=== PATIENT | female | born 1970 | race Caucasian/White ===

== ENCOUNTER 2018-10-20 12:45 | Emergency (ER) | payer MEDICAID ==
[~2018-10-20] VITALS: Ht 162.6 cm; Wt 76.4 kg
[~2018-10-20 12:45] MED LIST: AMPH10TA PO; BACL10TA2 PO; ENAL10TA78 PO; EST1T PO; HYDR-3965 PO; HYDR-3972 PO; IBUP-1984 PO; MECL-69 PO; NORCO10T PO; OSC500T PO; ZOLP10TA5 PO
[2018-10-20] MEDS ORDERED: ipratropium/albuterol 3ml nebule NEB ONE (14:10)
[2018-10-20] MEDS ORDERED: predniSONE 20 mg tablet PO ONE (14:10)
[2018-10-20] MEDS ORDERED: ALBU6.7H INH (14:21)
[2018-10-20] MEDS ORDERED: PRED20TA PO (14:21)
[2018-10-20] MEDS ORDERED: SULF1TAB49 PO (14:36)
[2018-10-20 14:48] VITALS: BP 133/100
== END 2018-10-20 14:50 | disposition home or self-care (01) ==
LOC: ER 12:47
DX: J20.9 Acute bronchitis, unspecified (principal); G89.29 Other chronic pain; F15.90 Other stimulant use, unspecified, uncomplicated; Z90.710 Acquired absence of both cervix and uterus; Z60.2 Problems related to living alone; Z56.0 Unemployment, unspecified; Z88.1 Allergy status to other antibiotic agents; Z88.5 Allergy status to narcotic agent; Z79.899 Other long term (current) drug therapy
CPT/HCPCS: 71045; 94640; 94760; 99283; J7512

== ENCOUNTER 2019-03-20 09:23 | Emergency (ER) | payer MEDICAID ==
[~2019-03-20] VITALS: Ht 162.6 cm; Wt 72.7 kg
[~2019-03-20 09:23] MED LIST changes: +ALBU6.7H9 INH
[2019-03-20 09:33] VITALS: BP 133/100
[2019-03-20] MEDS ORDERED: CYCL-1 PO (11:12)
[2019-03-20] MEDS ORDERED: HYDR-3565 PO (11:12)
== END 2019-03-20 11:46 | disposition home or self-care (01) ==
LOC: ER 09:24
DX: S80.11XA Contusion of right lower leg, initial encounter (principal); S40.812A Abrasion of left upper arm, initial encounter; S40.811A Abrasion of right upper arm, initial encounter; F15.90 Other stimulant use, unspecified, uncomplicated; G89.29 Other chronic pain; F32.9 Major depressive disorder, single episode, unspecified; Z88.1 Allergy status to other antibiotic agents; Z88.5 Allergy status to narcotic agent; Z79.899 Other long term (current) drug therapy; Z90.710 Acquired absence of both cervix and uterus; Z56.0 Unemployment, unspecified; W55.01XA Bitten by cat, initial encounter; Y93.89 Activity, other specified; Y92.89 Other specified places as the place of occurrence of the external cause; Y99.8 Other external cause status
CPT/HCPCS: 99283

== ENCOUNTER 2019-12-10 05:22 | Emergency (ER) | payer MEDICAID ==
[~2019-12-10] VITALS: Ht 162.6 cm; Wt 74.1 kg
[~2019-12-10 05:22] MED LIST changes: +CYCL-1 PO
[2019-12-10 06:12] LABS: BASOPHILS % (AUTO) 0.5 % (0-1); EOSINOPHILS % (AUTO) 0.5 % (0-6); HEMATOCRIT 41.3 % (35.0-45.0); HEMOGLOBIN 13.8 g/dl (12.0-16.0); LYMPHOCYTES # (AUTO) 1.4 X10'3 (1.1-4.8); MEAN CORPUSCULAR HEMOGLOBIN 31.6 PG (27.0-31.0); MEAN CORPUSCULAR HGB CONC 33.5 g/dL (33.0-36.5); MEAN CORPUSCULAR VOLUME 94.4 FL (78-98); MEAN PLATELET VOLUME 5.8 FL (7.4-10.4); MONOCYTES # (AUTO) 0.7 X10'3 (0-0.9); NEUTROPHILS # (AUTO) 6.8 X10'3 (1.8-7.7); PLATELET COUNT 301 X10'3 (140-440); RED BLOOD COUNT 4.38 X10'6 (4.20-5.60)
[2019-12-10 06:24] LABS: ALANINE AMINOTRANSFERASE 19 U/L (12-78); ALBUMIN 3.9 G/DL (3.4-5.0); ALBUMIN/GLOBULIN RATIO 1.3 (1.1-1.5); ALKALINE PHOSPHATASE 67 IU/L (46-116); ANION GAP 8 (8-16); ASPARTATE AMINO TRANSFERASE 11 U/L (10-37); BILIRUBIN,TOTAL 0.3 MG/DL (0.1-1.0); BLOOD UREA NITROGEN 12 MG/DL (7-18); CALCIUM 8.2 MG/DL (8.5-10.1); CHLORIDE 103 MMOL/L (99-107); GLUCOSE 125 MG/DL (70-104); POTASSIUM 3.3 MMOL/L (3.5-5.1); SODIUM 137 MMOL/L (135-145); TOTAL CARBON DIOXIDE 25.6 MMOL/L (24-32); TOTAL PROTEIN 6.9 G/DL (6.4-8.2); eGFR 76 ML/MIN
[2019-12-10] MEDS ORDERED: TETanus/Pertussis (Acell)/Diphther VAC/PF (Tdap-Adult) 0.5ml syringe IMVAC ONE (06:50)
--- NOTE | 2019-12-10 06:54 | NUR ---
PT BEING TAKEN TO CT
[2019-12-10] MEDS ORDERED: potassium Cl 20 mEq SR tablet PO STA (07:21)
[2019-12-10 07:40] VITALS: BP 131/62
== END 2019-12-10 07:53 | disposition home or self-care (01) ==
LOC: ER 05:23
DX: S01.01XA Laceration without foreign body of scalp, initial encounter (principal); R55 Syncope and collapse; W18.39XA Other fall on same level, initial encounter; Y93.89 Activity, other specified; Y92.89 Other specified places as the place of occurrence of the external cause; Y99.8 Other external cause status
CPT/HCPCS: 12001; 36415; 70450; 80053; 84484; 85025; 90471; 90715; 93005; 99285

== ENCOUNTER 2020-05-18 07:53 | Emergency (ER) | payer MEDICAID ==
[~2020-05-18] VITALS: Ht 162.6 cm; Wt 73.6 kg
[2020-05-18] MEDS ORDERED: HYDROcodone/acetaminophen 5mg/325mg tablet PO ONE (08:05)
--- NOTE | 2020-05-18 08:16 | NUR ---
BIB EMS. Pain 09/12. MD Edwards updated. [place] ordered and administered. No s/s distress. Taken to CT via wheelchair. Not on blood thinners.
[2020-05-18] MEDS ORDERED: LIDOcaine 1% W/epiNEPHrine 1:200,000 10ml vial IJ ONE (08:40)
[2020-05-18] MEDS ORDERED: LIDOcaine 1% w/epiNEPHrine 1:200,000 30ml vial IJ ONE (08:50)
[2020-05-18] MEDS ORDERED: HYDR-3965 PO (09:10)
[2020-05-18 09:31] VITALS: BP 147/93
== END 2020-05-18 09:28 | disposition home or self-care (01) ==
LOC: ER 07:54
DX: S01.01XA Laceration without foreign body of scalp, initial encounter (principal); G89.29 Other chronic pain; M54.9 Dorsalgia, unspecified; F32.9 Major depressive disorder, single episode, unspecified; F15.10 Other stimulant abuse, uncomplicated; Z56.0 Unemployment, unspecified; Z88.6 Allergy status to analgesic agent; Z88.1 Allergy status to other antibiotic agents; Z79.899 Other long term (current) drug therapy; W18.39XA Other fall on same level, initial encounter; Y93.89 Activity, other specified; Y92.89 Other specified places as the place of occurrence of the external cause; Y99.8 Other external cause status
CPT/HCPCS: 12001; 70450; 99284

== ENCOUNTER 2021-02-28 16:04 | Emergency (ER) | payer MEDICAID ==
[~2021-02-28] VITALS: Ht 162.6 cm; Wt 68.2 kg
[2021-02-28] MEDS ORDERED: traMADol 50MG tablet PO ONE (18:20)
[2021-02-28] MEDS ORDERED: ketorolac tromethamine 15mg/ml inj. IM ONE (18:20)
[2021-02-28] MEDS ORDERED: TRAM50TA2 PO (18:24)
[2021-02-28] MEDS ORDERED: IBUP-1984 PO (18:24)
[2021-02-28 20:09] VITALS: BP 151/96
== END 2021-02-28 20:11 | disposition home or self-care (01) ==
LOC: ER 16:04
DX: M25.561 Pain in right knee (principal); G89.29 Other chronic pain; F15.90 Other stimulant use, unspecified, uncomplicated; Z56.0 Unemployment, unspecified; Z90.710 Acquired absence of both cervix and uterus; Z88.1 Allergy status to other antibiotic agents; Z79.899 Other long term (current) drug therapy
CPT/HCPCS: 73564; 96372; 99283; J1885